=== PATIENT | male | born 1980 | race Caucasian/White ===

== ENCOUNTER → 2017-05-28 | Outpatient (CLI) | payer BC ==
--- NOTE | 2017-05-28 15:19 | XR ---
EXAMINATION TYPE: XR thoracic spine complete DATE OF EXAM: 05/28/2017 COMPARISON: NONE HISTORY: Back pain Alignment is anatomic. There is no compression deformities. Mild degenerative disc disease in the mi dthoracic spine with minimal superior endplate of the mid thoracic segment likely chronic. IMPRESSION: 1. Mild degenerative disc disease in the midthoracic spine with a very mild superior endplate jose martin elsi deformity of indeterminate age but felt most likely chronic. Correlate clinically
--- NOTE | 2017-05-28 15:21 | XR ---
EXAMINATION TYPE: XR ribs RT DATE OF EXAM: 05/28/2017 COMPARISON: NONE HISTORY: Pain TECHNIQUE: 4 views of the right ribs are submitted FINDINGS: Visualized lung hughes clear. Visualized rib cage is intact. IMPRESSION: No acute displaced rib fracture.
== END | disposition home or self-care (01) ==
LOC: RADXRMAIN 14:44
PROVIDERS: ATTEND Psychiatry & Neurology Neurology
DX: M51.34 Other intervertebral disc degeneration, thoracic region (principal); G95.29 Other cord compression; R07.81 Pleurodynia
CPT/HCPCS: 72072

== ENCOUNTER → 2017-06-09 | Outpatient (CLI) | payer BC | LOC: RADMRIMAIN 20:06 | PROVIDERS: ATTEND Psychiatry & Neurology Neurology | DX: Z53.9 Procedure and treatment not carried out, unspecified reason (principal) ==

== ENCOUNTER → 2017-09-22 | Outpatient (CLI) | payer BC ==
--- NOTE | 2017-09-22 23:03 | MR ---
EXAMINATION TYPE: MR brain wo/w con DATE OF EXAM: 09/22/2017 COMPARISON: Prior MRI brain February 09, 2014. CT brain September 11, 2017. HISTORY: Dizzy, headaches hx of seizures TECHNIQUE: Multiplanar, multisequence images of the brain and brainstem is performed without and with IV contras t, utilizing 9 mL intravenous Gadavist . FINDINGS: Diffusion weighted images demonstrate no evidence of a recent infarct or other diffusion ab normality. There is no worrisome extra-axial fluid collection. The ventricular system and cisternal spaces are normal in size and appearance. The brain volume is age appropriate. T2 coronal weighted images show hippocampal gyri to appear symmetric and felt within normal limits. There are some scatte red foci of T2 hyperintensity seen throughout the white matter bilaterally. Approximately 10 scattere d lesions are present, largest measures 4 to 5 mm in size right frontal lobe on axial image 22. No si gnificant change from prior MRI study is seen. Midline structures demonstrate normal morphology. The craniocervical junction appears within normal limits. Post contrast images demonstrate no abnormal enhancement. The dural venous sinuses appear pa tent. The visualized sinuses are clear and the globes are intact. IMPRESSION: Mild nonspecific white matter changes redemonstrated. No new or enhancing lesions are see n. No significant change from prior MRI.
== END | disposition home or self-care (01) ==
LOC: RADMRIMAIN 21:14
PROVIDERS: ATTEND Psychiatry & Neurology Neurology
DX: R90.82 White matter disease, unspecified (principal); G40.909 Epilepsy, unspecified, not intractable, without status epilepticus
CPT/HCPCS: 70553; A9581

== ENCOUNTER 2020-09-11 11:13 | Emergency (ER) | payer BC, OTHER ==
[2020-09-11 11:23] VITALS: BP 123/63; PULSE 75; RESP 18; TEMP 97.9
--- NOTE | 2020-09-11 11:33 | ED ---
Upper Extremity HPI - General Chief Complaint: Extremity Injury, Upper Stated Complaint: fell down stairs/hand & elbow pain Time Seen by Provider: 09/11/20 11:26 Source: patient Mode of arrival: ambulatory Limitations: no limitations - History of Present Illness Initial Comments: Patient is a 40-year-old male presenting to the emergency Department with complaints of right hand pain after he fell down the stairs at approximately 1 AM this morning. Patient states he also hit his left elbow but states that is feeling better. He denies hitting his head, no loss of consciousness, no vomiting, no abdominal pain, no chest pain. He states his only complaint is his right hand pain. He states he has had previous fractures in his right hand. He denies any pain of his right upper arm, right wrist. He is right-hand dominant. He has no further complaints at this time. - Related Data Home Medications Medication Instructions Recorded Confirmed No Known Home Medications 09/11/20 09/11/20 Allergies Allergy/AdvReac Type Severity Reaction Status Date / Time diphenhydramine Allergy Unknown Verified 09/11/20 11:44 [From Angela] Review of Systems ROS Statement: Those systems with pertinent positive or pertinent negative responses have been documented in the HPI. ROS Other: All systems not noted in ROS Statement are negative. Past Medical History Additional Past Medical History / Comment(s): epilepsy History of Any Multi-Drug Resistant Organisms: None Reported Past Surgical History: Orthopedic Surgery Additional Past Surgical History / Comment(s): left foot Past Psychological History: No Psychological Hx Reported Smoking Status: Current every day smoker Past Alcohol Use History: Daily Past Drug Use History: Marijuana General Exam - General Exam Comments Initial Comments: GENERAL: Patient is well-developed and well-nourished. Patient is nontoxic and in no acute distress. HEAD: Atraumatic, normocephalic. EYES: Pupils equal round and reactive to light, extraocular movements intact, sclera anicteric, conjunctiva are normal. Eyelids were unremarkable. ENT: TMs normal, nares patent, oropharynx clear without exudates. Moist mucous membranes. NECK: Normal range of motion, supple without lymphadenopathy or JVD. LUNGS: Unlabored respirations. Breath sounds clear to auscultation bilaterally and equal. No wheezes rales or rhonchi. HEART: Regular rate and rhythm without murmurs, rubs or gallops. ABDOMEN: Soft, nontender, normoactive bowel sounds. No guarding, no rebound. No masses appreciated. : Deferred MUSCULOSKELETAL: Patient has mild pain with palpation of the right hand, lateral aspect over the fourth and fifth metacarpals. There is no obvious swelling or deformity seen. There is a small deformity felt over the fifth metacarpal, he does have history of previous boxer's fractures. He is neurovascular intact. NEUROLOGICAL: Patient is alert and oriented x 3. Normal speech, normal gait. PSYCH: Normal mood, normal affect. SKIN: Warm, Dry, normal turgor, no rashes or lesions noted. Limitations: no limitations Course Vital Signs 09/11/20 09/11/20 11:19 12:18 Temperature 97.9 F 97.9 F Pulse Rate 75 75 Respiratory 18 18 Rate Blood Pressure 123/63 123/63 O2 Sat by Pulse 99 99 Oximetry Medical Decision Making - Medical Decision Making Patient is a 40-year-old male here for right hand pain after he fell down some stairs about 1 AM this morning. He denies any other injuries from this fall. X-rays of the right hand show no acute fractures dislocations, there are were old fractures. I discussed the patient's most likely a bone contusion. Recommended ibuprofen, ice for discomfort. He is stable for discharge. He can follow-up with PCP if symptoms continue. Disposition Clinical Impression: Contusion of right hand Disposition: HOME SELF-CARE Condition: Stable Instructions (If sedation given, give patient instructions): Contusion in Adults (ED) Additional Instructions: Please return to the Emergency Department if symptoms worsen or any other concerns. May take ibuprofen, ice for discomfort. Follow-up with PCP as symptoms persist. Is patient prescribed a controlled substance at d/c from ED?: No Referrals: Harriet Lantigua DO [Primary Care Provider] - 1-2 days
--- NOTE | 2020-09-11 12:06 | XR ---
Right hand HISTORY: Trauma and pain 3 views the right hand Deformity of the fifth metacarpal may be due to remote fracture with healing. Cortical thickening of the proximal phalanx of the fourth digit may be due to remote trauma, there is a slight angulation no javi. Soft tissue swelling is present. Joint spaces and bone mineralization are maintained. IMPRESSION: No acute fracture or dislocation of the right hand. Correlate for remote history of fract ures of the fourth and fifth digits.
== END 2020-09-11 12:18 | disposition home or self-care (01) ==
LOC: EC 11:13
DX: S60.221A Contusion of right hand, initial encounter (principal); F17.200 Nicotine dependence, unspecified, uncomplicated; Z88.8 Allergy status to other drugs, medicaments and biological substances; W10.9XXA Fall (on) (from) unspecified stairs and steps, initial encounter; Y92.009 Unspecified place in unspecified non-institutional (private) residence as the place of occurrence of the external cause
CPT/HCPCS: 99283

== ENCOUNTER 2021-02-10 11:23 | Emergency (ER) | payer OTHER ==
[2021-02-10 11:29] VITALS: BP 136/82; PULSE 84; RESP 18; TEMP 98.4
--- NOTE | 2021-02-10 12:05 | ED ---
General Adult HPI - General Chief complaint: Recheck/Abnormal Lab/Rx Stated complaint: Dr dick Time Seen by Provider: 02/10/21 11:34 Source: patient, RN notes reviewed, old records reviewed Mode of arrival: ambulatory Limitations: no limitations - History of Present Illness Initial comments: Patient is a 40-year-old male presents the ER today requesting a doctor's note to return to work. Patient reports his history of epilepsy. He states that he had a seizure at work. He states that he has had 3 seizures in his lifetime. He states that he neurology years ago but has not maintained his anti-seizure medication. Patient denies any injury.The third seizure did occur at work on . Patient reports that he knows that he is not supposed to drive. - Related Data Home Medications Medication Instructions Recorded Confirmed No Known Home Medications 09/11/20 09/11/20 Allergies Allergy/AdvReac Type Severity Reaction Status Date / Time diphenhydramine Allergy Unknown Verified 02/10/21 11:27 [From Benadryl] Review of Systems ROS Statement: Those systems with pertinent positive or pertinent negative responses have been documented in the HPI. ROS Other: All systems not noted in ROS Statement are negative. Past Medical History Additional Past Medical History / Comment(s): epilepsy History of Any Multi-Drug Resistant Organisms: None Reported Past Surgical History: Orthopedic Surgery Additional Past Surgical History / Comment(s): left foot Past Psychological History: No Psychological Hx Reported Smoking Status: Current every day smoker Past Alcohol Use History: Daily Past Drug Use History: Marijuana General Exam - General Exam Comments Initial Comments: 10-year-old male. Alert and oriented. Limitations: no limitations General appearance: alert, in no apparent distress Head exam: Present: atraumatic, normocephalic, normal inspection Eye exam: Present: normal appearance, PERRL, EOMI. Absent: scleral icterus, conjunctival injection, periorbital swelling ENT exam: Present: normal exam, mucous membranes moist Respiratory exam: Present: normal lung sounds bilaterally. Absent: respiratory distress, wheezes, rales, rhonchi, stridor Cardiovascular Exam: Present: regular rate, normal rhythm, normal heart sounds. Absent: systolic murmur, diastolic murmur, rubs, gallop, clicks GI/Abdominal exam: Present: soft, normal bowel sounds. Absent: distended, tenderness, guarding, rebound, rigid Extremities exam: Present: normal inspection, full ROM, normal capillary refill. Absent: tenderness, pedal edema, joint swelling, calf tenderness Back exam: Present: normal inspection Neurological exam: Present: alert, oriented X3, CN II-XII intact Psychiatric exam: Present: normal affect, normal mood Course Vital Signs 02/10/21 11:27 Temperature 98.4 F Pulse Rate 84 Respiratory 18 Rate Blood Pressure 136/82 O2 Sat by Pulse 98 Oximetry Medical Decision Making - Medical Decision Making 40-year-old male presents for no intercourse he can return to work. He has history of epilepsy. He states that he plans follow with neurology and PCP this week. Discussed the Patient will be written a note to return however needs to discuss his care further with his neurologist and PCP. Cautioned on no driving for 6 months post seizure. Disposition Clinical Impression: Return to work evaluation, History of epilepsy Disposition: HOME SELF-CARE Condition: Good Instructions (If sedation given, give patient instructions): Epilepsy (ED) Additional Instructions: Patient advised follow-up with neurology and primary care physician. You will need to restart epileptic medication. Patient should not drive for 6 months seizure free. Is patient prescribed a controlled substance at d/c from ED?: No Referrals: Harriet Lantigua DO [Primary Care Provider] - 1-2 days Time of Disposition: 12:05
== END 2021-02-10 12:15 | disposition home or self-care (01) ==
LOC: EC 11:23
DX: Z02.79 Encounter for issue of other medical certificate (principal); F17.200 Nicotine dependence, unspecified, uncomplicated; Z86.69 Personal history of other diseases of the nervous system and sense organs; Z88.8 Allergy status to other drugs, medicaments and biological substances; Y99.0 Civilian activity done for income or pay
CPT/HCPCS: 99282

== ENCOUNTER 2021-02-21 13:12 | Emergency (ER) | payer OTHER ==
[2021-02-21 14:49] VITALS: BP 112/55; PULSE 104; RESP 20; TEMP 98.1
--- NOTE | 2021-02-21 16:04 | ED ---
Recheck HPI - General Source: patient Mode of arrival: ambulatory Limitations: no limitations <Becky Prather - Last Filed: 02/22/21 19:04> <Velia Nelson - Last Filed: 02/23/21 11:58> - General Chief Complaint: Recheck/Abnormal Lab/Rx Stated Complaint: SOB,Cough Time Seen by Provider: 02/21/21 15:51 - History of Present Illness Initial Comments: Patient is a 40-year-old male presenting to the emergency department requesting a refill of his inhaler. Patient states he has a history of mild asthma and states he has been feeling a little bit shortness breath over the past day or 2. He states he did not go to work this morning secondary to the wheezing. He states usually he uses an inhaler and he clears up his symptoms. He denies any fevers or chest pain. He denies any recent sick contacts. He denies any nausea or vomiting. He has no further complaints at this time. (Becky Prather) - Related Data Previous Rx's Medication Instructions Recorded Albuterol Inhaler [Ventolin Hfa 1 puff INHALATION RT-QID PRN #1 02/21/21 Inhaler] puff Allergies Allergy/AdvReac Type Severity Reaction Status Date / Time diphenhydramine Allergy Unknown Verified 02/21/21 14:51 [From Benadryl] Review of Systems ROS Other: All systems not noted in ROS Statement are negative. <Bekcy Prather - Last Filed: 02/22/21 19:04> ROS Other: All systems not noted in ROS Statement are negative. <Velia Nelson - Last Filed: 02/23/21 11:58> ROS Statement: Those systems with pertinent positive or pertinent negative responses have been documented in the HPI. Past Medical History Past Medical History: Asthma, Seizure Disorder Additional Past Medical History / Comment(s): epilepsy History of Any Multi-Drug Resistant Organisms: None Reported Past Surgical History: Orthopedic Surgery Additional Past Surgical History / Comment(s): left foot Past Psychological History: No Psychological Hx Reported Smoking Status: Current every day smoker Past Alcohol Use History: Daily Past Drug Use History: Marijuana <Becky Prather - Last Filed: 02/22/21 19:04> General Exam Limitations: no limitations <Becky Prather - Last Filed: 02/22/21 19:04> - General Exam Comments Initial Comments: GENERAL: Patient is well-developed and well-nourished. Patient is nontoxic and in no acute distress. HEAD: Atraumatic, normocephalic. EYES: Pupils equal round and reactive to light, extraocular movements intact, sclera anicteric, conjunctiva are normal. Eyelids were unremarkable. ENT: TMs normal, nares patent, oropharynx clear without exudates. Moist mucous membranes. NECK: Normal range of motion, supple without lymphadenopathy or JVD. LUNGS: Unlabored respirations. Breath sounds clear to auscultation bilaterally and equal. No wheezes rales or rhonchi. HEART: Regular rate and rhythm without murmurs, rubs or gallops. ABDOMEN: Soft, nontender, normoactive bowel sounds. No guarding, no rebound. No masses appreciated. : Deferred MUSCULOSKELETAL: Normal extremities with adequate strength and normal range of motion, no pitting or edema. No clubbing or cyanosis. NEUROLOGICAL: Patient is alert and oriented x 3. Motor and sensory are also intact. Cranial nerves II through XII grossly intact. Symmetrical smile. Normal speech, normal gait. PSYCH: Normal mood, normal affect. SKIN: Warm, Dry, normal turgor, no rashes or lesions noted. (Becky Prather) Course Vital Signs 02/21/21 14:45 Temperature 98.1 F Pulse Rate 104 H Respiratory 20 Rate Blood Pressure 112/55 O2 Sat by Pulse 98 Oximetry Medical Decision Making <Becky Prather - Last Filed: 02/22/21 19:04> <Velia Nelson - Last Filed: 02/23/21 11:58> - Medical Decision Making Patient is a 40-year-old male here with history of asthma requesting a refill of his inhaler as well as a work note. His exam is unremarkable. No fevers, his vitals are stable. Patient will be given a refill of albuterol inhaler and work note for today. He is stable for discharge. He'll follow up with his doctor. (Becky Prather) I was available for consultation in the emergency department. The history and physical exam were done by the midlevel provider. I was consulted for this patients care. I reviewed the case with the midlevel provider and based on their presentation of the patient, I agree with the assessment, medical decision making and plan of care as documented. Chart was dictated using [employer] dictation software. Attempts were made to correct any dictation errors however some typographical errors may persist. Patient was seen during a national state of emergency due to the Covid-19 pandemic. (Velia Nelson) Disposition Is patient prescribed a controlled substance at d/c from ED?: No Time of Disposition: 16:04 <Becky Prather - Last Filed: 02/22/21 19:04> <Velia Nelson - Last Filed: 02/23/21 11:58> Clinical Impression: Encounter for medication refill Disposition: HOME SELF-CARE Condition: Stable Instructions (If sedation given, give patient instructions): Asthma (ED) Additional Instructions: Please return to the Emergency Department if symptoms worsen or any other concerns. Use inhaler as prescribed. Prescriptions: Albuterol Inhaler [Ventolin Hfa Inhaler] 1 puff INHALATION RT-QID PRN #1 puff PRN Reason: Shortness Of Breath Referrals: Harriet Lantigua DO [Primary Care Provider] - 1-2 days
== END 2021-02-21 16:13 | disposition home or self-care (01) ==
LOC: EC 13:12
DX: Z76.0 Encounter for issue of repeat prescription (principal); R06.02 Shortness of breath; R05 Cough; J45.909 Unspecified asthma, uncomplicated; G40.909 Epilepsy, unspecified, not intractable, without status epilepticus; F17.200 Nicotine dependence, unspecified, uncomplicated; F12.90 Cannabis use, unspecified, uncomplicated
CPT/HCPCS: 99284

== ENCOUNTER 2021-05-29 11:05 | Emergency (ER) | payer OTHER ==
[2021-05-29 11:13] VITALS: BP 112/64; PULSE 83; RESP 16; TEMP 97.5
[2021-05-29] MEDS ORDERED: HYDROmorphone 0.5 MG/0.5 ML SYRINGE IVP STA (11:26)
[2021-05-29] MEDS ORDERED: ONDANSETRON 4 MG/2 ML VIAL IVP STA (11:26)
[2021-05-29] MEDS ORDERED: SODIUM CHLORIDE 0.9% 1,000 ML IV STA (11:26)
--- NOTE | 2021-05-29 11:27 | ED ---
General Adult HPI - General Chief complaint: Abdominal Pain Stated complaint: abd pain Time Seen by Provider: 05/29/21 11:15 Source: patient, RN notes reviewed Mode of arrival: ambulatory Limitations: no limitations - History of Present Illness Initial comments: 41-year-old male with a past medical history of asthma presents to the emergency room for a chief complaint of abdominal pain. Patient has had abdominal pain for the past week. States it is worsening. Patient states it is on the right side of his abdomen. Patient denies vomiting but does admit to nausea. Patient also admits to diarrhea. Denies melena or hematochezia. Patient reports the pain is constant. Denies alleviating or aggravating factors.Patient has no other complaints at this time including shortness of breath, chest pain, vomiting, headache, or visual changes. - Related Data Previous Rx's Medication Instructions Recorded Albuterol Inhaler [Ventolin Hfa 1 puff INHALATION RT-QID PRN #1 02/21/21 Inhaler] puff Dicyclomine [Bentyl] 20 mg PO TID PRN #20 tablet 05/29/21 Ondansetron [Zofran ODT] 4 mg PO Q8HR PRN #15 tab 05/29/21 Allergies Allergy/AdvReac Type Severity Reaction Status Date / Time diphenhydramine AdvReac joint pain Verified 05/29/21 12:27 [From Angela] & concepcion Review of Systems ROS Statement: Those systems with pertinent positive or pertinent negative responses have been documented in the HPI. ROS Other: All systems not noted in ROS Statement are negative. Past Medical History Past Medical History: Asthma, Seizure Disorder Additional Past Medical History / Comment(s): epilepsy History of Any Multi-Drug Resistant Organisms: None Reported Past Surgical History: Orthopedic Surgery Additional Past Surgical History / Comment(s): left foot Past Psychological History: No Psychological Hx Reported Smoking Status: Current every day smoker Past Alcohol Use History: Daily Past Drug Use History: Marijuana General Exam Limitations: no limitations General appearance: alert, in no apparent distress Head exam: Present: atraumatic, normocephalic, normal inspection Eye exam: Present: normal appearance, PERRL, EOMI. Absent: scleral icterus, conjunctival injection, periorbital swelling ENT exam: Present: normal exam, mucous membranes moist Neck exam: Present: normal inspection, full ROM. Absent: tenderness, meningismus, lymphadenopathy Respiratory exam: Present: normal lung sounds bilaterally. Absent: respiratory distress, wheezes, rales, rhonchi, stridor Cardiovascular Exam: Present: regular rate, normal rhythm, normal heart sounds. Absent: systolic murmur, diastolic murmur, rubs, gallop, clicks GI/Abdominal exam: Present: soft, normal bowel sounds. Absent: distended, tenderness, guarding, rebound, rigid Neurological exam: Present: alert Course Vital Signs 05/29/21 11:11 Temperature 97.5 F L Pulse Rate 83 Respiratory 16 Rate Blood Pressure 112/64 O2 Sat by Pulse 97 Oximetry Medical Decision Making - Medical Decision Making Vitals are stable. Abdomen is nontender. Patient has right mid abdominal pain. CBC unremarkable. White count 5.8. CMP is normal. Urinalysis negative. CT abdomen and pelvis shows a small amount of air present within the right heart likely from IV administration. Patient denies any IV drug abuse or chest pain. There is also evidence of hepatic steatosis. Gallbladder is normal. Also possible enteritis. Patient's diarrhea notices likely contributing. Recommend patient follow up with his doctor and GI to discuss enteritis and hepatic steatosis. If he has any worsening symptoms or fevers he will return to the emergency room. - Lab Data Result diagrams: 05/29/21 11:33 05/29/21 11:33 Lab Results 05/29/21 05/29/21 05/29/21 Range/Units 11:27 11:33 11:33 WBC 5.8 (3.8-10.6) k/uL RBC 5.27 (4.30-5.90) m/uL Hgb 16.9 (13.0-17.5) gm/dL Hct 47.5 (39.0-53.0) % MCV 90.3 (80.0-100.0) fL MCH 32.0 (25.0-35.0) pg MCHC 35.5 (31.0-37.0) g/dL RDW 12.7 (11.5-15.5) % Plt Count 353 (150-450) k/uL MPV 6.3 Neutrophils % 56 % Lymphocytes % 32 % Monocytes % 5 % Eosinophils % 3 % Basophils % 1 % Neutrophils # 3.2 (1.3-7.7) k/uL Lymphocytes # 1.9 (1.0-4.8) k/uL Monocytes # 0.3 (0-1.0) k/uL Eosinophils # 0.2 (0-0.7) k/uL Basophils # 0.1 (0-0.2) k/uL Sodium 143 (137-145) mmol/L Potassium 4.4 (3.5-5.1) mmol/L Chloride 107 (98-107) mmol/L Carbon Dioxide 22 (22-30) mmol/L Anion Gap 14 mmol/L BUN 10 (9-20) mg/dL Creatinine 0.75 (0.66-1.25) mg/dL Est GFR (CKD-EPI)AfAm >90 (>60 ml/min/1.73 sqM) Est GFR (CKD-EPI)NonAf >90 (>60 ml/min/1.73 sqM) Glucose 97 (74-99) mg/dL Plasma Lactic Acid Joel (0.7-2.0) mmol/L Calcium 9.6 (8.4-10.2) mg/dL Total Bilirubin 0.3 (0.2-1.3) mg/dL AST 32 (17-59) U/L ALT 40 (4-49) U/L Alkaline Phosphatase 75 (38-126) U/L Total Protein 7.4 (6.3-8.2) g/dL Albumin 4.8 (3.5-5.0) g/dL Amylase 54 (30-110) U/L Lipase 79 (23-300) U/L Urine Color Colorless Urine Appearance Clear (Clear) Urine pH 6.5 (5.0-8.0) Ur Specific [place] 1.003 (1.001-1.035) Urine Protein Negative (Negative) Urine Glucose (UA) Negative (Negative) Urine Ketones Negative (Negative) Urine Blood Negative (Negative) Urine Nitrite Negative (Negative) Urine Bilirubin Negative (Negative) Urine Urobilinogen <2.0 (<2.0) mg/dL Ur Leukocyte Esterase Negative (Negative) 05/29/21 Range/Units 11:33 WBC (3.8-10.6) k/uL RBC (4.30-5.90) m/uL Hgb (13.0-17.5) gm/dL Hct (39.0-53.0) % MCV (80.0-100.0) fL MCH (25.0-35.0) pg MCHC (31.0-37.0) g/dL RDW (11.5-15.5) % Plt Count (150-450) k/uL MPV Neutrophils % % Lymphocytes % % Monocytes % % Eosinophils % % Basophils % % Neutrophils # (1.3-7.7) k/uL Lymphocytes # (1.0-4.8) k/uL Monocytes # (0-1.0) k/uL Eosinophils # (0-0.7) k/uL Basophils # (0-0.2) k/uL Sodium (137-145) mmol/L Potassium (3.5-5.1) mmol/L Chloride (98-107) mmol/L Carbon Dioxide (22-30) mmol/L Anion Gap mmol/L BUN (9-20) mg/dL Creatinine (0.66-1.25) mg/dL Est GFR (CKD-EPI)AfAm (>60 ml/min/1.73 sqM) Est GFR (CKD-EPI)NonAf (>60 ml/min/1.73 sqM) Glucose (74-99) mg/dL Plasma Lactic Acid Joel 1.4 (0.7-2.0) mmol/L Calcium (8.4-10.2) mg/dL Total Bilirubin (0.2-1.3) mg/dL AST (17-59) U/L ALT (4-49) U/L Alkaline Phosphatase (38-126) U/L Total Protein (6.3-8.2) g/dL Albumin (3.5-5.0) g/dL Amylase (30-110) U/L Lipase (23-300) U/L Urine Color Urine Appearance (Clear) Urine pH (5.0-8.0) Ur Specific [place] (1.001-1.035) Urine Protein (Negative) Urine Glucose (UA) (Negative) Urine Ketones (Negative) Urine Blood (Negative) Urine Nitrite (Negative) Urine Bilirubin (Negative) Urine Urobilinogen (<2.0) mg/dL Ur Leukocyte Esterase (Negative) Disposition Clinical Impression: Abdominal pain, Diarrhea, Hepatic steatosis Disposition: HOME SELF-CARE Condition: Good Instructions (If sedation given, give patient instructions): Acute Diarrhea (ED), Abdominal Pain (ED) Additional Instructions: Take Bentyl as needed for pain. Take Zofran as needed for nausea. Please follow-up with your doctor in one to 2 days. follow up with GI as well. Return to the emergency room for any worsening symptoms. Prescriptions: Dicyclomine [Bentyl] 20 mg PO TID PRN #20 tablet PRN Reason: abdominal pain Ondansetron [Zofran ODT] 4 mg PO Q8HR PRN #15 tab PRN Reason: Nausea Is patient prescribed a controlled substance at d/c from ED?: No Referrals: Harriet Lantigua DO [Primary Care Provider] - 1-2 days Cinthia Mera MD [STAFF PHYSICIAN] - 1-2 days Time of Disposition: 13:24
[2021-05-29 11:44] LABS: Appearance,Urine Clear (Clear); Bilirubin,Urine Negative (Negative); Blood,Urine Negative (Negative); Color,Urine Colorless; Glucose,Urine (UA) Negative (Negative); Ketones,Urine Negative (Negative); Leukocyte Esterase,Urine Negative (Negative); Nitrite,Urine Negative (Negative); PH, Urine 6.5 (5.0-8.0); Protein,Urine Negative (Negative); Specific Gravity,Urine 1.003 (1.001-1.035); Urobilinogen,Urine <2.0 mg/dL (<2.0)
[2021-05-29 12:09] LABS: ALT 40 U/L (4-49); AST 32 U/L (17-59); African American GFR (CKD) >90 (>60 ml/min/1.73 sqM); Albumin 4.8 g/dL (3.5-5.0); Alkaline Phosphatase 75 U/L (38-126); Amylase 54 U/L (30-110); Anion Gap 14 mmol/L; Blood Urea Nitrogen 10 mg/dL (9-20); Calcium 9.6 mg/dL (8.4-10.2); Carbon Dioxide 22 mmol/L (22-30); Chloride 107 mmol/L (98-107); Glucose 97 mg/dL (74-99); Lipase 79 U/L (23-300); Non-African American GFR(CKD) >90 (>60 ml/min/1.73 sqM); Potassium 4.4 mmol/L (3.5-5.1); Sodium 143 mmol/L (137-145); Total Bilirubin 0.3 mg/dL (0.2-1.3); Total Protein 7.4 g/dL (6.3-8.2)
[2021-05-29 12:16] LABS: Basophils # (A) 0.1 k/uL (0-0.2); Basophils % (A) 1 %; Eosinophils # (A) 0.2 k/uL (0-0.7); Eosinophils % (A) 3 %; HCT 47.5 % (39.0-53.0); HGB 16.9 gm/dL (13.0-17.5); Lymphocytes # (A) 1.9 k/uL (1.0-4.8); Lymphocytes % (A) 32 %; MCHC 35.5 g/dL (31.0-37.0); MCV 90.3 fL (80.0-100.0); Mean Platelet Volume 6.3; Monocytes # (A) 0.3 k/uL (0-1.0); Monocytes % (A) 5 %; Neutrophils # (A) 3.2 k/uL (1.3-7.7); Neutrophils % (A) 56 %; Platelet Count 353 k/uL (150-450); RBC 5.27 m/uL (4.30-5.90); RDW 12.7 % (11.5-15.5); WBC 5.8 k/uL (3.8-10.6)
[2021-05-29] MEDS ORDERED: KETOROLAC 15 MG/ML 1 ML VIAL IVP STA (12:46)
[2021-05-29] MEDS ORDERED: LORazepam 2 MG/ML INJ IV STA (13:04)
--- NOTE | 2021-05-29 13:09 | CT ---
EXAMINATION TYPE: CT abdomen pelvis w con DATE OF EXAM: 05/29/2021 COMPARISON: CT 01/10/2012 HISTORY: Right mid abodminal pain CT DLP: 652.2 mGycm Automated exposure control for dose reduction was used. TECHNIQUE: Helical acquisition of images from the lung bases through the pelvis have been completed. CONTRAST: Performed without Oral Contrast and with IV Contrast, patient injected with 100 ml mL of Isovue 300. FINDINGS: There is a minimal amount of air density within the nondependent right heart possibly intro duced during intravenous administration. Artifact is present likely due to motion. LUNG BASES: No significant abnormality is appreciated. AORTA: No significant abnormality is appreciated. LIVER/GB: Liver shows low attenuation likely due to hepatic steatosis, gallbladder is normal PANCREAS: No significant abnormality is seen. SPLEEN: No significant abnormality is seen. ADRENALS: No significant abnormality is seen. KIDNEYS: No significant abnormality is seen. REPRODUCTIVE ORGANS: Prostate calcifications present. BOWEL: Multiple fluid-filled loops of small bowel are present, some possible associated small bowel wall thickening. There is no appendicitis. FREE AIR: No Free Air visible. ASCITES: None visible. PELVIC ADENOPATHY: None visualized. RETROPERITONEAL ADENOPATHY: No Retroperitoneal Adenopathy visible. URINARY BLADDER: No significant abnormality is seen. OSSEOUS STRUCTURES: No significant abnormality is seen. IMPRESSION: SMALL AMOUNT OF AIR PRESENT WITHIN THE RIGHT HEART. CORRELATE FOR HEPATIC STEATOSIS, ADDITIONAL NONSP ECIFIC FINDINGS ABOVE, CONSIDER ENTERITIS.
== END 2021-05-29 13:34 | disposition home or self-care (01) ==
LOC: EC 11:05
DX: K76.0 Fatty (change of) liver, not elsewhere classified (principal); J45.909 Unspecified asthma, uncomplicated; G40.909 Epilepsy, unspecified, not intractable, without status epilepticus; F17.200 Nicotine dependence, unspecified, uncomplicated; F12.90 Cannabis use, unspecified, uncomplicated; Z75.2 Other waiting period for investigation and treatment; Z79.899 Other long term (current) drug therapy
CPT/HCPCS: 36415; 80053; 82150; 83605; 83690; 85025; 81003; 74177; 96374; 96375 ×3; 96361; 99284; J2060; J2405; J1885; J1170; Q9967